=== PATIENT | male | born 1995 | race Caucasian/White ===

== ENCOUNTER 2019-09-26 11:31 | Emergency (ER) | payer OTHER, SELFPAY ==
--- NOTE | ~2019-09-26 | XR_ITS ---
EXAMINATION: XR abdomen/kub 1V EXAM DATE: 09/26/2019 12:20 INDICATION: Right flank pain. TECHNIQUE: Frontal projection(s) of the abdomen for interpretation. There is no prior study for leia javed. FINDINGS: There is expected amount of colonic stool and gas. No small bowel dilation, nonobstructiv e bowel gas pattern. There are no suspicious calcifications identified. There is no organomegaly suspected. Mild lumbar levocurvature. IMPRESSION: Unremarkable abdomen x-ray exam. Reviewed, dictated and finalized at location A. RVISOR MOLD SHOP
[2019-09-26 11:38] VITALS: BP 132/76; PULSE 79; RESP 16; TEMP 36.5; O2SAT 99
--- NOTE | 2019-09-26 11:53 | ED.MALEGU ---
HPI - Male Genitourinary General Chief complaint: Urogenital-Male Stated complaint: FLANK PAIN Time Seen by Provider: 09/26/19 12:00 Source: patient and RN notes reviewed Mode of arrival: ambulatory Limitations: no limitations History of Present Illness HPI Narrative: 23 old male presents with concern for right flank pain since yesterday, worsening at 2 AM waking him up from sleep. Reports he had 1 episode of vomiting last night. Reports history of low back pain related to poor arches in his feet. Reports his current pain is exacerbated when bending, twisting. Reports he is able to find brief positions of comfort when he stretches. Reports typically his back pain will be relieved with ibuprofen and heating pad. Reports those interventions did not work for this back pain. Reports history of abdominal issues, was hospitalized for intussusception and cyclical vomiting in the past. Reports his last bowel movement was 2 days ago, which is typical for him. Denies dysuria, hematuria, frequency, urgency. Denies fever, general malaise. Denies abnormal penile discharge. Denies injury MD Complaint: other (Flank pain) Related Data Allergies Allergy/AdvReac Type Severity Reaction Status Date / Time amoxicillin Allergy Unknown Verified 05/02/11 17:16 Penicillins Allergy Unknown Verified 08/19/11 07:46 Review of Systems Review of Systems: Narrative: CONSTITUTIONAL: Denies malaise, chills, sweats, or fever. CARDIOVASCULAR: Denies chest pain, palpitations, or edema. RESPIRATORY: Denies cough or dyspnea. GASTROINTESTINAL: Denies abdominal pain, nausea, vomiting, diarrhea, bloody, or mucous stools. GENITOURINARY: Denies dysuria frequency, urgency, abnormal penile discharge, or hematuria. Reports right flank pain SKIN: Denies bruising MUSCULOSKELETAL: Reports right back/flank pain. Denies joint pain, or myalgia. NEUROLOGIC: Denies numbness, weakness, or headache. All systems reviewed & are unremarkable except as noted in HPI and below [facility] Family History Family History (Updated 05/02/11 @ 17:17 by DOCTOR UNKNOWN) Other Diabetes mellitus Family history of allergic disorder Family history of cardiovascular disease Family history of osteoarthritis Family history of seizure disorder Social History Social History Smoking status: Never smoker Alcohol intake: current Substance use type: marijuana Comments At time of signature, agree with nursing past medical, surgical, social and family history. There is no relevant family history pertinent to the presenting complaint Exam Narrative: Exam Narrative: GENERAL: Well-appearing, well-nourished, and in no acute distress. HEAD: Normocephalic, atraumatic. EYES: PERRLA, conjunctivae clear. ENT: Mucous membranes moist. NECK: Supple. No lymphadenopathy CHEST: Speaks in full sentences. No respiratory distress. HEART: Regular rate and rhythm. ABDOMEN: Soft, flat, nondistended. No guarding, rebound tenderness, or rigid. No pulsatilla masses. Bowel sounds present in all four quadrants. No organomegaly. Negative Rae?s sign. No periumbilical tenderness. No Supra public tenderness or distension. Good femoral pulses bilaterally. No hernia noted. No scars or surface trauma. No CVA tenderness MUSCULOSKELETAL: Normal range of motion and strength in all extremities; 5/5 strength with hip flexion and extension, dorsiflexion and extension, knee flexion and extension, plantar flexion and extension. Normal sensation in dermatomal distributions with sensitivity to light touch and pain. No midline back tenderness to palpation. No paraspinal tenderness. Transfers from lying to sitting to standing. SKIN: Warm, dry, no rash. No ecchymosis, erythema, open wounds to back. NEURO: Alert and oriented x3. PSYCH: Normal mood and affect Course Course Emergency Course: Discussed with patient limited diagnostic capability at [facility], and that KUB cannot rule out nephrolithiasis. Discussed transfe
== END 2019-09-26 12:41 | disposition home or self-care (01) ==
PROVIDERS: Emergency Provider Nurse Practitioner; PCP Family Medicine
DX: M54.5 Low back pain (principal)
CPT/HCPCS: 74018; 81003; 99213; G0463

== ENCOUNTER 2019-12-10 13:26 | Emergency (ER) | payer OTHER, SELFPAY ==
--- NOTE | ~2019-12-10 | CT_ITS ---
EXAMINATION: CT abdomen pelvis wo con DATE: 12/10/2019 13:57 INDICATION: Right flank pain TECHNIQUE: Computed tomography (CT) of the abdomen and pelvis was performed without intravenous contr ast. Automated exposure control and iterative reconstruction technique were employed. The dose-length product was 199.29 mGy-cm. COMPARISON: 11/27/2018 FINDINGS: Lung bases are clear. Heart size is normal. No pericardial or pleural effusion. Liver, gallbladder, s pleen, pancreas, bilateral adrenal glands and left kidney are normal. Interval increase in now modera te to severe right hydronephrosis with transition point at the ureteropelvic junction. No evident uro lithiasis. High attenuation appendicolith within the otherwise normal-appearing appendix with no eugenio appendiceal inflammatory stranding to suggest acute appendicitis. No abnormal bowel wall thickening o r obstruction. Decompressed bladder is unremarkable. No free intraperitoneal gas or fluid. No patholo gically enlarged abdominal or pelvic lymphadenopathy. Bones are unremarkable. IMPRESSION: 1. Chronic right UPJ obstruction but with significant interval progression of now moderate to severe right hydronephrosis. 2. Appendicoliths but without findings to specifically suggest acute appendicitis. Reviewed, dictated and finalized at location A. IMPRESSION: 1. Chronic right UPJ obstruction but with significant interval progression of n ow moderate to severe right hydronephrosis. 2. Appendicoliths but without findings to specifically suggest acute appendicit is.
[2019-12-10 13:29] VITALS: BP 139/88; PULSE 89; RESP 18; TEMP 36.2; O2SAT 99
[2019-12-10 14:00] LABS: Basophils Percent Auto 0.4 % (0.2-1.2); Hematocrit 40.5 % (42.0-52.0); Hemoglobin 14.2 g/dL (14.0-18.0); Immature Granulocyte Absolute 0.02 K/mm3 (0.00-0.031); Immature Granulocyte Percent A 0.2 % (0-0.5); Lymphocytes Absolute Auto 1.51 K/mm3 (0.9-3.2); Mean Corpuscular HGB Conc 35.1 g/dl (32-36); Mean Corpuscular Hemoglobin 29.8 pg (26-34); Mean Corpuscular Volume 85.1 fl (80-100); Monocytes Absolute Auto 0.5 K/mm3 (0.1-0.6); Neutrophils Absolute Auto 6.3 K/mm3 (1.3-6.7); Neutrophils Percent Auto 75.4 % (45.5-73.1); Platelet Count Result 266 k/mm3 (150-375); Red Blood Count 4.76 M/mm3 (4.6-6.20); Red Cell Distribution Width 11.5 % (11.5-14.5); White Blood Count 8.4 K/mm3 (4.5-10.0)
[2019-12-10] MEDS: PROMETHAZINE HCL 25 MG/ML AMPUL 12.5 MG IV PUSH (14:01)
[2019-12-10] MEDS: SODIUM CHLORIDE 0.9% IV 1,000 ML 999 ML IV CONT (14:02)
[2019-12-10 14:03] LABS: Add Urine Microscopic? YES; Appearance Urine Clear (Clear); Bilirubin Urine Negative (Negative); Blood Urine Negative (Negative); Color Urine Yellow (Yellow); Glucose Urine UA Negative (Negative); Ketones Urine 2+ mg/dL (Negative); Leukocyte Esterase Ur Negative LEU/UL (Negative); Mucus Urine Rare /lpf; Nitrate Urine Negative (Negative); Protein Urine Negative (Negative); RBC Urine 0-2 /hpf (0-2); Urobilinogen Urine Negative mg/dL (<2.0); WBC Urine 0-3 /hpf
[2019-12-10 14:12] LABS: Blood Urea Nitrogen 14 mg/dL (9-20); Calcium 9.3 mg/dL (8.4-10.2); Carbon Dioxide 23 mmol/L (22-30); Chloride 104 mmol/L (98-107); Estimated CRCL calculation 77 ml/min; Estimated Glomerular Filt Rate > 60; Glucose 83 mg/dL (75-110); Potassium 3.9 mmol/L (3.4-5.0); Sodium 137 mmol/L (137-145)
--- NOTE | 2019-12-10 14:55 | ED.GENADULT ---
HPI - General Adult General Chief complaint: Back Pain/Injury Stated complaint: Flank pain Time Seen by Provider: 12/10/19 13:28 History of Present Illness HPI narrative: Patient is a 24-year-old male who presents ER with intermittent right flank pain. Ongoing for the last month. Worsening over the last week. Took 2 [place] tablets last 24 hours that did not alleviate his discomfort so he came to the hospital. Patient also reports he is now having frequent nausea and vomiting that occur with the pain in his back. Right side and radiates around into the abdomen. No urinary frequency or urgency or hematuria. No history of kidney stones. Related Data Allergies Allergy/AdvReac Type Severity Reaction Status Date / Time amoxicillin Allergy Unknown Rash Verified 12/10/19 13:39 Penicillins Allergy Unknown Rash Verified 12/10/19 13:39 Review of Systems Review of Systems: All systems reviewed & are unremarkable except as noted in HPI and below Constitutional: Constitutional: Denies chills, Denies fever(s) and Denies weakness Gastrointestinal: Gastrointestinal: Reports abdominal pain, Reports nausea and Reports vomiting Musculoskeletal: Musculoskeletal: Reports back pain and Denies muscle cramps Neurologic: Denies focal weakness and Denies numbness PMFSH Past Medical History Medical History (Updated 12/10/19 @ 15:39 by Bk Aguayo MD) Nephritis Surgical History Surgical History (Updated 12/10/19 @ 14:56 by Bk Aguayo MD) No pertinent past surgical history Family History Family History (Updated 05/02/11 @ 17:17 by DOCTOR UNKNOWN) Other Diabetes mellitus Family history of allergic disorder Family history of cardiovascular disease Family history of osteoarthritis Family history of seizure disorder Social History Social History Smoking status: Never smoker Alcohol intake: current Substance use type: marijuana Gender identity (if verbalized by the patient): Male Exam Narrative: Exam Narrative: GENERAL: Well-appearing, well-nourished, and in no acute distress. HEAD: Normocephalic, atraumatic. ENT: Mucous membranes moist. CHEST: Clear to auscultation. No respiratory distress. HEART: Regular rate and rhythm. Normal peripheral pulses. ABDOMEN: Soft, nontender, nondistended, mild right CVA tenderness. EXTREMITIES: Normal range of motion. No edema. SKIN: Warm, dry, no rash. NEURO: Alert and oriented x3. PSYCH: Normal mood and affect. Course Course Emergency Course: Discussed case with Dr. Zaragoza. He will contact the patient and arrange an outpatient follow-up with a specialist to can fix this issue. Recommends patient drink fluids and small quantities because if he has a large bolus of fluid intake it will cause pain and spasm. No acute intervention needed at this time. Patient verbalized understanding of treatment plan. We will give a small dose of Toradol here by recommendation of urology and discharged with [place]. Vital Signs Vital signs: Vital Signs Temperature 97.1 F L 12/10/19 13:29 Pulse Rate 89 12/10/19 13:29 Respiratory Rate 18 12/10/19 13:29 Blood Pressure 139/88 12/10/19 13:29 Pulse Oximetry 99 12/10/19 13:29 Temperature 97.1 F L 12/10/19 13:29 Pulse Rate 89 12/10/19 13:29 Respiratory Rate 18 12/10/19 13:29 Blood Pressure 139/88 12/10/19 13:29 Pulse Oximetry 99 12/10/19 13:29 Medical Decision Making Vital Signs Vital Signs: Vital Signs Temperature 97.1 F L 12/10/19 13:29 Pulse Rate 89 12/10/19 13:29 Respiratory Rate 18 12/10/19 13:29 Blood Pressure 139/88 12/10/19 13:29 Pulse Oximetry 99 12/10/19 13:29 Temperature 97.1 F L 12/10/19 13:29 Pulse Rate 89 12/10/19 13:29 Respiratory Rate 18 12/10/19 13:29 Blood Pressure 139/88 12/10/19 13:29 Pulse Oximetry 99 12/10/19 13:29 Lab Data Result diagrams: 12/10/19 13:53 12/10/19 13:53 Labs: Lab Results
[2019-12-10] MEDS: KETOROLAC 15 MG/ML VIAL (*BKC) IV PUSH (16:12)
[2019-12-10 16:14] VITALS: BP 124/90; PULSE 85; RESP 18; O2SAT 100
== END 2019-12-10 16:16 | disposition home or self-care (01) ==
PROVIDERS: Emergency Provider Emergency Medicine; PCP Family Medicine
DX: Q62.11 Congenital occlusion of ureteropelvic junction (principal); R10.9 Unspecified abdominal pain; G89.29 Other chronic pain; K38.1 Appendicular concretions
CPT/HCPCS: 36415; 74176; 80048; 81001; 85025; 96361; 96374; 96375; 99284; J1885; J2550; J7030

== ENCOUNTER 2019-12-25 14:18 | Observation (INO) | payer OTHER, SELFPAY ==
--- NOTE | ~2019-12-25 | CT_ITS ---
EXAMINATION: CT guided nephrostomy tube ch DATE: 12/26/2019 17:02 INDICATION: Right ureteropelvic junction obstruction. TECHNIQUE: The procedure including the risks and benefits was discussed with the patient. Risks discu ssed included bleeding and infection. The patient understood the risks and benefits and agreed to pro ceed. The patient was confirmed to be receiving appropriate antibiotic coverage. The skin overlying the kidney was prepped and draped in usual sterile fashion. Anesthetic was administered with 1% lido olivia subcutaneously. Patient also was given 75 mcg fentanyl for general analgesia. An 18 gauge troc miguelangel needle was inserted into a lower pole calyx of the kidney under CT guidance. Utilizing Seldinger technique the needle was exchanged and the tract serially dilated to 9 Omani dilators and then for a n 8.5 Omani pigtail catheter under CT guidance. The pigtail loop was formed and appropriate position confirmed by CT. The catheter was stitched to the skin. A dressing was applied. 10 mL of reddish uri ne was aspirated and sent to the lab for Gram stain and cultures. The dose-length product was 407.61 mGy-cm. There were no immediate complications. FINDINGS: CT images demonstrate the nephrostomy tube in the renal pelvis. IMPRESSION: 1. Successful CT-guided right nephrostomy tube placement]. Reviewed, dictated and finalized at location A.
[2019-12-25 14:22] VITALS: BP 137/79; PULSE 79; RESP 16; TEMP 36.4; O2SAT 100
[2019-12-25] MEDS: SODIUM CHLORIDE 0.9% IV 1,000 ML 999 ML IV CONT (14:59)
--- NOTE | 2019-12-25 14:59 | ED.BACK ---
HPI - Back Pain/Injury General Chief Complaint: Back Pain/Injury <SATINDER Morales Last Filed: 12/25/19 16:27> Stated Complaint: back pain <SATINDER Morales Last Filed: 12/25/19 16:27> Time Seen by Provider: 12/25/19 14:31 <SATINDER Morales Last Filed: 12/25/19 16:27> Source: patient <SATINDER Morales Last Filed: 12/25/19 16:27> Mode of arrival: ambulatory <SATINDER Moarles Last Filed: 12/25/19 16:27> Limitations: no limitations <SATINDER Morales Last Filed: 12/25/19 16:27> History of Present Illness HPI Narrative: Patient is a 24-year-old male who presents to emergency department for evaluation of continued low back pain that was worse today was recently found to have a ureteral stricture and is scheduled for surgery next week followed by urology and low back. Patient has been taking Zofran and oral narcotics for pain management noting that today the pain increased and he had associated vomiting. Patient on arrival is in the room in no distress. Pain is a constant aching pain worse with activity movement <SATINDER Morales Last Filed: 12/25/19 16:27> Related Data Allergies/Adverse Reactions: Allergies Allergy/AdvReac Type Severity Reaction Status Date / Time amoxicillin Allergy Unknown Rash Verified 12/25/19 14:29 Penicillins Allergy Unknown Rash Verified 12/25/19 14:29 <Andrea Perry PA-C - Last Filed: 12/25/19 16:27> Review of Systems Review of Systems: All systems reviewed & are unremarkable except as noted in HPI and below <SATINDER Morales Last Filed: 12/25/19 16:27> [facility] Past Medical History Medical History: Medical History Nephritis <SATINDER Morales Last Filed: 12/25/19 16:27> Surgical History Surgical History: Surgical History No pertinent past surgical history <SATINDER Morales Last Filed: 12/25/19 16:27> Family History Family History: Family History Other Diabetes mellitus Family history of allergic disorder Family history of cardiovascular disease Family history of osteoarthritis Family history of seizure disorder <Andrea Perry PA-C - Last Filed: 12/25/19 16:27> Social History Social History: Social History Smoking status: Never smoker Alcohol intake: current Substance use type: marijuana Gender identity (if verbalized by the patient): Male <SATINDER Morales Last Filed: 12/25/19 16:27> Course MANAGING EDITOR/PA Physician Supervision Patient presented to the emergency department for recurrent flank pain in the setting of known ureteral stricture. Patient without acute kidney injury or UTI. Spoke with patient's urologist, coordinated care at this facility, patient will be admitted for nephrostomy tube. Patient was given IV fluids, antiemetic and pain medication while in the ER. For this patient encounter, I reviewed the MANAGING EDITOR or PA documentation, treatment plan, and medical decision making; and I had [id number] time with this patient. <Era Richardson MD - Last Filed: 12/25/19 18:13> Consultations Consultation #1: Discussed case with Dr. Zuleyma Cruz twice who would like the patient admitted and will send down the nurse practitioner to evaluate the patient in the emergency department <Andrea Perry PA-C - Last Filed: 12/25/19 16:27> Date: 12/25/19 <SATINDER Morales Last Filed: 12/25/19 16:27> Time: 16:16 <SATINDER Morales Last Filed: 12/25/19 16:27> Vital Signs Vital signs: Vital Signs Temperature 36.4 C 12/25/19 14:22 Pulse Rate 79 12/25/19 14:22 Respiratory Rate 16 12/25/19 14:22 Blood Pressure 137/79 12/25/19 14:22 Pulse Oximet
[2019-12-25] MEDS: FAMOTIDINE 20 MG/2 ML VIAL IV PUSH ×2 (15:00→21:12)
[2019-12-25] MEDS: ONDANSETRON INJ 4 MG/2 ML VIAL IV PUSH (15:00)
[2019-12-25 15:14] LABS: Basophils Percent Auto 0.3 % (0.2-1.2); Eosinophils Percent Auto 0.3 % (0-4.4); Hemoglobin 14.5 g/dL (14.0-18.0); Immature Granulocyte Absolute 0.03 K/mm3 (0.00-0.031); Immature Granulocyte Percent A 0.3 % (0-0.5); Lymphocytes Absolute Auto 1.25 K/mm3 (0.9-3.2); Lymphocytes Percent Auto 12.5 % (18.3-44.2); Mean Corpuscular HGB Conc 35.4 g/dl (32-36); Mean Corpuscular Hemoglobin 30.5 pg (26-34); Mean Corpuscular Volume 86.3 fl (80-100); Mean Platelet Volume 10.1 fl (7.4-10.4); Monocytes Absolute Auto 0.7 K/mm3 (0.1-0.6); Monocytes Percent Auto 6.8 % (2.6-8.5); Neutrophils Percent Auto 79.8 % (45.5-73.1); Platelet Count Result 259 k/mm3 (150-375); Red Blood Count 4.75 M/mm3 (4.6-6.20); Red Cell Distribution Width 11.7 % (11.5-14.5)
[2019-12-25 15:16] LABS: Add Urine Microscopic? NO; Appearance Urine Clear (Clear); Bilirubin Urine Negative (Negative); Blood Urine Negative (Negative); Color Urine Straw (Yellow); Glucose Urine UA Negative (Negative); Ketones Urine Negative (Negative); Leukocyte Esterase Ur Negative LEU/UL (Negative); Nitrate Urine Negative (Negative); Protein Urine Negative (Negative); Specific Grav Ur 1.014 (1.001-1.035); Urobilinogen Urine Negative mg/dL (<2.0)
[2019-12-25 15:26] LABS: Alanine Aminotransferase 11 U/L (4-50); Albumin Level 4.7 g/dL (3.5-5.1); Alkaline Phosphatase 57 U/L (38-126); Aspartate Amino Transferase 19 U/L (17-59); Bilirubin,Total 0.8 mg/dL (0.2-1.3); Blood Urea Nitrogen 15 mg/dL (9-20); Calcium 9.6 mg/dL (8.4-10.2); Carbon Dioxide 25 mmol/L (22-30); Chloride 104 mmol/L (98-107); Estimated CRCL calculation 93 ml/min; Estimated Glomerular Filt Rate > 60; Glucose 86 mg/dL (75-110); Lipase 34 U/L (23-300); Sodium 137 mmol/L (137-145)
[2019-12-25] MEDS: KETOROLAC 30 MG/ML VIAL (*BKC) IV PUSH (15:45)
--- NOTE | 2019-12-25 15:45 | PC.NURSE ---
Pt c/o worsening pain to right flank, states that last time he was here he was told that maybe it was from the bolus of fluids. Pain med given IVP.
--- NOTE | 2019-12-25 16:20 | PC.NURSE ---
DRAPERY AND UPHOLSTERY ESTIMATOR from urology here to speak with patient. Planning to admit and NPO after midnight for possible neprostomy tube placement.
[2019-12-25] MEDS: MORPHINE SULFATE 4 MG/ML INJ IV PUSH ×2 (16:21→21:13)
[2019-12-25 16:23] VITALS: BP 108/86; PULSE 70; RESP 18; O2SAT 99
--- NOTE | 2019-12-25 16:31 | WPDURCON ---
Assessment and Plan Assessment and plan (1) Ureteropelvic junction (UPJ) obstruction, right: Code(s): N13.5 - Crossing vessel and stricture of ureter without hydronephrosis Status: Acute Assessment and Plan: Admit to medicine for pain control. Will do US guided nephrostomy tube placement tomorrow in interventional radiology. NPO after midnight. Urology Consult Note HPI Date Seen: 12/25/19 Primary Care Provider: Seferino Nguyen MD Consult Narrative Narrative: Faustino Frank is a 24 year old male who presents to the ER today with worsening right flank pain, nausea and vomiting. He has a known right UPJ obstruction seen on CT scan from 12/10/2019, which also shows severe right hydronephrosis. He is in pain consistently which is not controlled with Torodol and was just given Morphine. WBC is 7.0, creatinine is 1.10 and UA is negative. Patient denies fever, hematuria, dysuria or abdominal pain. Review of Systems Cardiovascular: Cardiovascular: Reports no additional cardiovascular complaints Respiratory: Respiratory: Reports no additional respiratory complaints Gastrointestinal: Gastrointestinal: Denies abdominal pain, Reports nausea and Reports vomiting Genitourinary: Genitourinary: Denies hematuria, Reports flank pain and Denies urinary frequency PMFSH Past Medical History Medical History Nephritis Surgical History Surgical History No pertinent past surgical history Family History Family History Other Diabetes mellitus Family history of allergic disorder Family history of cardiovascular disease Family history of osteoarthritis Family history of seizure disorder Social History Social History Smoking status: Never smoker Alcohol intake: current Substance use type: marijuana Gender identity (if verbalized by the patient): Male Meds Home Medications and Allergies Home Medications Medication Instructions Recorded Confirmed Type hydrocodone-acetaminophen 1 tablet PO Q6H PRN #20 tablet 12/10/19 Rx ondansetron 4 mg PO Q6H PRN #10 tablet 12/10/19 Rx Allergies Allergy/AdvReac Type Severity Reaction Status Date / Time amoxicillin Allergy Unknown Rash Verified 12/25/19 14:29 Penicillins Allergy Unknown Rash Verified 12/25/19 14:29 Vital Signs Vital Signs - 24 hr 12/25/19 14:22 12/25/19 16:23 Temperature 97.6 F Pulse Rate 79 70 Respiratory Rate 16 18 Blood Pressure 137/79 108/86 Pulse Oximetry 100 99 Exam Resp: Effort & Inspection: normal respiratory effort Cardio: Rate: regular rate GI: GI Palp: No abdominal tenderness : General: Yes CVA tenderness on the right Results Labs CBC & Chem 7: 12/25/19 15:07 12/25/19 15:07 Labs: Short CBC 12/25/19 Range/Units 15:07 WBC 10.0 (4.5-10.0) K/mm3 Hgb 14.5 (14.0-18.0) g/dL Hct 41.0 L (42.0-52.0) % Plt Count 259 (150-375) k/mm3 BMP 12/25/19 15:07 Sodium 137 Potassium 4.0 Chloride 104 Carbon Dioxide 25 BUN 15 Creatinine 1.10 Glucose 86 Calcium 9.6 Liver Function 12/25/19 Range/Units 15:07 Total Bilirubin 0.8 (0.2-1.3) mg/dL AST 19 (17-59) U/L ALT 11 (4-50) U/L Alkaline Phosphatase 57 (38-126) U/L Albumin 4.7 (3.5-5.1) g/dL Urine 12/25/19 Range/Units 15:07 Urine Color Straw (Yellow) Urine Appearance Clear (Clear) Urine pH 7.0 (5.0-9.0) Ur Specific [place] 1.014 (1.001-1.035) Urine Protein Negative (Negative) mg/dL Urine Glucose (UA) Negative (Negative) mg/dL
[2019-12-25 16:44] LABS: Prothrombin Time 13.3 Seconds (11.1-14.7)
[2019-12-25 16:45] LABS: Partial Thromboplastin Time 28.7 SECONDS (22.3-36.8)
[2019-12-25 17:41] VITALS: BP 115/67; PULSE 72; RESP 14; O2SAT 99
--- NOTE | 2019-12-25 18:07 | PC.NURSE ---
Attempt to call report. ISAMAR Emanuel to return call.
[2019-12-25 18:38] VITALS: BMI 22.5
--- NOTE | 2019-12-25 18:56 | ADMGEN ---
This patient, Faustino Frank, was admitted to Medical Room 348-. Patient/family oriented to hospital policies and general routines including ID bracelet, bed and alarms, visiting hours, pain management, procedures, bathroom and other care routines, personal items, smoking policy, room service/diet, and visiting hours. Valuables list has been completed. Information on how to activate the Rapid Response Team has been discussed. Patient/Family are encouraged to report perceived risks to care and to ask questions if they do not understand what they are told or what they should do.
[2019-12-25 20:22] VITALS: BP 131/74; PULSE 64; RESP 16; TEMP 36.2; O2SAT 98
[2019-12-25 21:37] VITALS: PULSE 64; RESP 16; O2SAT 98
[2019-12-26] VITALS (21 sets, daily range): BP systolic 102–146; BP diastolic 61–89; PULSE 58–88; RESP 14–18; O2SAT 98–100
[2019-12-26 06:14] LABS: Basophils Percent Auto 0.4 % (0.2-1.2); Eosinophils Absolute Auto 0.1 K/mm3 (0-0.3); Eosinophils Percent Auto 0.8 % (0-4.4); Hematocrit 40.8 % (42.0-52.0); Hemoglobin 13.9 g/dL (14.0-18.0); Immature Granulocyte Absolute 0.03 K/mm3 (0.00-0.031); Immature Granulocyte Percent A 0.4 % (0-0.5); Lymphocytes Absolute Auto 2.84 K/mm3 (0.9-3.2); Lymphocytes Percent Auto 33.2 % (18.3-44.2); Mean Corpuscular HGB Conc 34.1 g/dl (32-36); Mean Corpuscular Hemoglobin 29.9 pg (26-34); Mean Corpuscular Volume 87.7 fl (80-100); Mean Platelet Volume 10.4 fl (7.4-10.4); Monocytes Absolute Auto 0.7 K/mm3 (0.1-0.6); Monocytes Percent Auto 8.2 % (2.6-8.5); Neutrophils Absolute Auto 4.9 K/mm3 (1.3-6.7); Platelet Count Result 270 k/mm3 (150-375); Red Blood Count 4.65 M/mm3 (4.6-6.20); Red Cell Distribution Width 11.7 % (11.5-14.5); White Blood Count 8.6 K/mm3 (4.5-10.0)
[2019-12-26 06:38] LABS: Blood Urea Nitrogen 15 mg/dL (9-20); Calcium 9.4 mg/dL (8.4-10.2); Carbon Dioxide 28 mmol/L (22-30); Chloride 105 mmol/L (98-107); Estimated CRCL calculation 85 ml/min; Estimated Glomerular Filt Rate > 60; Glucose 70 mg/dL (75-110); Potassium 4.3 mmol/L (3.4-5.0); Sodium 140 mmol/L (137-145)
[2019-12-26] MEDS: FAMOTIDINE 20 MG/2 ML VIAL IV PUSH (08:56)
--- NOTE | 2019-12-26 13:47 | WPDUROPN2 ---
Progress Note: A&P Assessment and Plan (1) Ureteropelvic junction (UPJ) obstruction, right: Code(s): N13.5 - Crossing vessel and stricture of ureter without hydronephrosis Status: Acute Assessment and Plan: Patient will have right nephrostomy tube placed today at 1400, then ok to discharge home. He will follow up with Dr. Mathew for a telehealth appointment tomorrow at 3pm to discuss upcoming procedure next Tuesday that was previously scheduled as an outpatient. No further evaluation necessary at this time. Subjective Subjective Date/Time Seen: 12/26/19 13:47 Patient's pain has decreased greatly. He is scheduled for nephrostomy tube placement at 1400 today. Review of Systems Cardiovascular: Cardiovascular: Reports no additional cardiovascular complaints Respiratory: Respiratory: Reports no additional respiratory complaints Gastrointestinal: Gastrointestinal: Denies abdominal pain, Denies nausea and Denies vomiting Genitourinary: Genitourinary: Denies hematuria and Denies flank pain Exam Resp: Effort & Inspection: normal respiratory effort Cardio: Rate: regular rate GI: GI Palp: No abdominal tenderness Objective Data Vital Signs Vital Signs: Vital Signs - 24 hr 12/25/19 14:22 12/25/19 16:23 12/25/19 17:41 Temperature 97.6 F Pulse Rate 79 70 72 Respiratory Rate 16 18 14 Blood Pressure 137/79 108/86 115/67 Pulse Oximetry 100 99 99 12/25/19 20:22 12/25/19 21:37 12/26/19 05:17 Temperature 97.2 F L Pulse Rate 64 64 58 L Respiratory Rate 16 16 14 Blood Pressure 131/74 114/73 Pulse Oximetry 98 98 100 12/26/19 08:00 Temperature Pulse Rate Respiratory Rate Blood Pressure Pulse Oximetry 100 Intake/Output Intake/Output: Intake & Output 12/23/19 12/24/19 12/25/19 12/26/19 23:59 23:59 23:59 23:59 Intake Total 1000 0 Output Total 350 Balance 1000 -350 Meds/Results Medications: Active Medications Generic Name Dose Route Start Last Admin Trade Name Freq PRN Reason Stop Dose Admin Famotidine 20 mg 12/25/19 21:00 12/26/19 08:56 Pepcid Iv IV PUSH 20 mg Q12HR MARJAN Administration Acetaminophen 1,000 mg in 100 mls @ 400 mls/hr 12/25/19 16:27 Ofirmev 1,000 Mg Ivpb IVPB 12/26/19 16:28 Q6H PRN Mild Pain (1-3) or Fever Lactated Ringer's 1,000 mls @ 75 mls/hr 12/25/19 16:30 12/26/19 07:24 Lr - Lactated Ringers Iv IV CONT Not Given .[id number] MARJAN Morphine Sulfate 4 mg 12/25/19 16:27 12/25/19 21:13 Morphine Sulfate Inj IV PUSH 4 mg Q2H PRN Administration Pain Rated 7-10 Ondansetron HCl 4 mg 12/25/19 16:27 Zofran Inj IV PUSH Q4H PRN Nausea Labs Labs: Laboratory Results - last 24 hr 12/25/19 12/25/19 12/25/19 15:06 15:07 15:07 WBC 10.0 RBC 4.75 Hgb 14.5 Hct 41.0 L MCV 86.3 MCH 30.5 MCHC 35.4 RDW 11.7 Plt Count 259 MPV 10.1 Immature Gran % (Auto) 0.3 Neut % (Auto) 79.8 H Lymph % (Auto) 12.5 L Slope % (Auto) 6.8 Eos % (Auto) 0.3 Baso % (Auto) 0.3 Lymph # (Auto) 1.25 Slope # (Auto) 0.7 H Eos # (Auto) 0.0 Baso # (Auto) 0.0 Abs Immat Gran (auto) 0.03 Absolute Neuts (auto) 8.0 H Absolute Nucleated RBC 0.0 Nucleated RBC % 0.0 PT 13.3 INR 1.0 APTT 28.7 Sodium 137 Potassium 4.0 Chloride 104 Carbon Dioxide 25 BUN 15 Creatinine 1.10 Estim Creat Clear Calc 93 Estimated GFR > 60 Glucose 86 Calcium 9.6 Total Bilirubin 0.8 AST 19 ALT 11 Alkaline Phosphatase 57 Total Protein 7.0 Albumin 4.7 Lipase 34 Urine Color Urine Appearance Urine pH Ur Specific [place] Urine Protein Urine Glucose (UA) Urine Ketones Ur Blood (Man) Urine Nitrate Urine Bilirubin Urine Urobilinogen Leukocyte Esterase Rfl 12/25/19 12/26/19 12/26/19 15:07 05:05 05:05 WBC 8.6 RBC 4.65 Hgb 13.9 L Hct 40.8 L MCV
--- NOTE | 2019-12-26 14:07 | SUR.OPER ---
PT. VILMA JESSICA ARRIVED TO CT VIA BED FOR CT GUIDED NEPHROSTOMY TUBE PLACEMENT BY DR. BARCLAY. PLACED ON CT TABLE. DENIES PAIN AT THIS TIME. AWAIT DR. BARCLAY.
[2019-12-26] MEDS: SODIUM CHLORIDE 0.9% IV 500 ML 30 ML (14:24)
--- NOTE | 2019-12-26 14:24 | SUR.OPER ---
DR. BARCLAY ARRIVES TO CT, DISCUSSING PROCEDURE W/ PT. PT. CALM, COOPERATIVE, A&OX4. AGREEABLE TO PROCEED. VSS. PT. REPOSITIONED SELF W/ ASSIST TO PRONE POSITION ON TABLE.
--- NOTE | 2019-12-26 14:50 | SUR.OPER ---
TIME OUT COMPLETED. SEE MODERATE SEDATION FLOW SHEET FOR MEDICATIONS GIVEN DURING PROCEDURE BY THIS RN. DR. BARCLAY AT SIDE, CLEANSING SKIN AND MARKING SITES W/ CT GUIDANCE.
--- NOTE | 2019-12-26 14:58 | SUR.OPER ---
LIDOCAINE LOCAL ANESTHETIC BEING ADMINISTERED TO R. POSTERIOR FLANK SITE BY DR. BARCLAY.
[2019-12-26] MEDS: CIPROFLOXACIN 400 MG/D5W 200ML 200 ML 200 MG IVPB (15:00)
--- NOTE | 2019-12-26 15:00 | SUR.OPER ---
400MG CIPRO IVPB IN 200ML STARTED VIA PUMP PER DR. BARCLAY'S ORDER.
--- NOTE | 2019-12-26 15:07 | SUR.OPER ---
ADDITIONAL LOCAL INJECTION OF LIDOCAINE GIVEN BY DR. BARCLAY TO R. POSTERIOR FLANK. 2ML THIS TIME. 3ML PREVIOUS TIME AT 1458.
--- NOTE | 2019-12-26 15:15 | SUR.OPER ---
DR. BARCLAY OBTAINING NEEDLE PLACMENT TO FLUID COLLECTION SITE USING CT GUIDANCE. CONTINUEING TO MONITOR PT. HAS ONLY HAD LOCAL ANESTHESIA SO FAR DURING PROCEDURE. TOLERATING WELL. VSS.
--- NOTE | 2019-12-26 15:36 | SUR.OPER ---
PROCEDURE CONTINUES. GRIMACING NOTED. FENTANYL 50MCG GIVEN IVP PER ORDER FOR PAIN/PROMOTE COMFORT. SEE MODERATE SEDATION FLOW SHEET.
--- NOTE | 2019-12-26 15:46 | SUR.OPER ---
ADDITIONAL 2ML LOCAL INJECTION OF LIDOCAINE GIVEN TO R. POSTERIOR FLANK AREA BY DR. BARCLAY TO NUMB AREA.
--- NOTE | 2019-12-26 15:58 | SUR.OPER ---
GRIMACING INTERMITTANTLY, CLENCHING TEETH. FENTANYL 50MCG GIVEN IVP ORDERED FOR PAIN CONTROL. SEE MODERATE SEDATION FLOWSHEET FOR MEDS GIVEN. VSS. REASSURANCE GIVEN. REPORTS RELIEF WHEN FENTANYL GIVEN.
--- NOTE | 2019-12-26 16:05 | SUR.OPER ---
WIRE THREADED THROUGH NEEDLE TO FLUID COLLECTION USING CT GUIDANCE.
--- NOTE | 2019-12-26 16:13 | SUR.OPER ---
DR. BARCLAY DIALATING OVER WIRE FOR INSERTION OF COOK CATHETER TUBE.
--- NOTE | 2019-12-26 16:16 | SUR.OPER ---
FENTANYL 50MCG GIVEN IVP FOR PAIN CONTROL, COMFORT. HAS RECEIVED TOTAL OF 150MCG FENTANYL IV DURING PROCEDURE FOR COMFORT, PAIN CONTROL. WILL CONTINUE TO MONITOR. DR. BARCLAY INSERTING [id number] COOK CATHETER INTO FLUID COLLECTION R. KIDNEY. THIN, WATERY, BLOODY COLORED FLUID RETURNED IN TUBING TO COLLECTION BAG.
--- NOTE | 2019-12-26 16:25 | SUR.OPER ---
COOK DRAINAGE CATHETER SUTURED INTO PLACE. TOLERATED WELL. VSS.
--- NOTE | 2019-12-26 16:30 | SUR.OPER ---
INTACT, DRAINING COOK CATHETER NEPHROSTOMY TUBE SECURE AND DRESSED W/ GUAZE AND TEGADERM DRESSING BY DR. BARCLAY. FLUID SAMPLE COLLECTED BY TO SEND TO LAB.
--- NOTE | 2019-12-26 16:32 | SUR.OPER ---
PROCEDURE COMPLETE AT THIS TIME. RESTING. IV ABX COMPLETED AT 1603. 200ML INFUSED. REPORTS PRESSURE TO R. LOWER POSTERIOR FLANK AT 2/10. DENIES IT PAIN. GOOD SPIRITS. TALKATIVE. VSS. WILL CONTINUE TO MONITOR UNTIL 30 MINUTES POST LAST SEDATIVE RX GIVEN AT 1616.
--- NOTE | 2019-12-26 16:53 | SUR.OPER ---
VSS. FULLY AWAKE AND ALERT. DENIES PAIN OR NAUSEA AT THIS TIME. HAS TRANSFERRED SELF FROM CT TABLE TO BED FOR TRANSPORT BACK TO [facility] MEDICAL ROOM 348.1. GUAZE AND TEGADERM DRESSING TO R. LOWER POSTERIOR FLANK C/D/I. NEPHROSTOMY TUBE INTACT AND DRAINING SMALL AMOUNT OF WATERY BLOOD COLORED FLUID. TOLERATED PROCEDURE WELL. VOICES NO C/O. RETURNED TO ROOM 348.1 VIA BED. REPORT GIVEN TO ISAMAR EMMANUEL.
[2019-12-26] MEDS: MORPHINE SULFATE 4 MG/ML INJ IV PUSH (17:40)
== END 2019-12-26 19:40 | disposition home or self-care (01) ==
LOC: ANHED 16:33 → ANH3MED 17:44
PROVIDERS: Emergency Medicine Emergency Medical Services; Radiology Diagnostic Radiology; Admitting Provider Urology; Emergency Provider Emergency Medicine; PCP Family Medicine; Visit Provider Urology
PROC: (CPT 50389; principal; 2019-12-26 14:00)
DX: N13.1 Hydronephrosis with ureteral stricture, not elsewhere classified (principal); Z79.891 Long term (current) use of opiate analgesic; R10.9 Unspecified abdominal pain
CPT/HCPCS: 36415; 50435; 80048; 80053; 81003; 83690; 85025; 85610; 85730; 87070; 87075; 87205; 96361; 96374; 96375; 96376; 99285; C1729; C1769; G0378; J0744; J1885; J2270; J2405; J3010; J7030; J7040; Q9967

== ENCOUNTER 2020-03-20 08:25 | Outpatient (CLI) | payer OTHER, SELFPAY ==
--- NOTE | ~2020-03-20 | XR_ITS ---
XR abdomen/kub 1V DATE: 03/20/2020 08:55 INDICATION: Ureteral stricture, hydronephrosis TECHNIQUE: Supine AP view COMPARISON: 12/26/2019 CT guided right nephrostomy tube placement FINDINGS: A pigtail nephrostomy catheter overlies the mid to lower right kidney. There is a right int ernal urinary stent, proximal pigtail overlying the right renal pelvis. There is a prominent amount of fecal material within the colon but no evidence of bowel obstruction. No visceromegaly or significant abnormal calcification is evident. 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 IMPRESSION: Right nephrostomy catheter and right internal urinary stent Reviewed, dictated and finalized at [facility]. Reviewed, dictated and finalized at [facility].
== END 2020-03-20 08:26 | disposition home or self-care (01) ==
LOC: ANHIMG 08:31
PROVIDERS: PCP Family Medicine; Visit Provider Urology
DX: N13.1 Hydronephrosis with ureteral stricture, not elsewhere classified (principal)
CPT/HCPCS: 74018

== ENCOUNTER 2023-05-31 16:38 | Emergency (ER) | payer OTHER, SELFPAY ==
[2023-05-31 16:52] VITALS: BP 129/75; PULSE 70; RESP 16; TEMP 37.2; O2SAT 100
--- NOTE | 2023-05-31 17:21 | ED.URI ---
HPI - URI/Sore Throat General Chief Complaint: Upper Respiratory Infection Stated Complaint: Strep symptoms Time Seen by Provider: 05/31/23 17:15 Source: patient Mode of arrival: ambulatory Limitations: no limitations History of Present Illness HPI Narrative: 27 year old male present to [facility] care with complaints of sore throat for the past 5 days with increased symptoms today with some chills and sweats with no known fevers, admits to some body aches, denies any cough or ear pain or any headache pain. Patient reports that he has had strep in past with symptoms similar in past. Patient reports that he did have some diarrhea last night denies any nausea or vomiting. MD elicited complaint: sore throat Pertinent past history: other (past strep throat) Onset (ago): day(s) (5) Consistency: progressively worsening Pain scale (0-10): 3 Able to tolerate fluids by mouth: Yes Exacerbating factors: swallowing Treatments prior to arrival: ibuprofen Related Data Allergies Allergy/AdvReac Type Severity Reaction Status Date / Time amoxicillin Allergy Unknown Rash Verified 05/31/23 17:20 Penicillins Allergy Unknown Rash Verified 05/31/23 17:20 Review of Systems Review of Systems: CONSTITUTIONAL:Reports malaise, positive for chills, sweats, no known fever. EYES: Denies visual changes, redness, or discharge. ENT: Reports rhinorrhea, congestion,no sinus pain,no otalgia and positive for sore throat. CARDIOVASCULAR: Denies chest pain, palpitations, or edema. RESPIRATORY: Reports cough.? Denies dyspnea. GASTROINTESTINAL: Denies abdominal pain, nausea, vomiting, diarrhea SKIN: Denies rash or itching. MUSCULOSKELETAL:reports myalgia. NEUROLOGIC: Denies headache. All systems reviewed & are unremarkable except as noted in HPI and below PMFSH Past Medical History Medical History (Updated 06/01/23 @ 20:33 by Era Raya NP) Anxiety and depression Eczema as child Nephritis Strep throat Ureteropelvic junction (UPJ) obstruction, right Urinary tract infection Surgical History Surgical History (Updated 06/01/23 @ 20:33 by Era Raya NP) H/O nephrostomy History of placement of ear tubes Family History Family History (Updated 12/25/19 @ 18:46 by Jenae Comer RN) Grandparent Diabetes mellitus Hypertension Father Hypertension Mother Migraines Other Family history of allergic disorder Family history of cardiovascular disease Family history of osteoarthritis Family history of seizure disorder Social History Social History Smoking packs per day: 0 Smoking cigarettes per day: 0.0 Smoking status: Never smoker Alcohol intake: never Substance use: current Substance use type: marijuana Last use: Yesterday 12/24/19 Gender identity (if verbalized by the patient): Male Spiritual care concerns: No Comments At time of signature, agree with nursing past medical, surgical, social and family history. There is no relevant family history pertinent to the presenting complaint Exam Narrative: GENERAL: Well-appearing, well-nourished, and in no acute distress. HEAD: Normocephalic EYES: PERRLA, conjunctivae clear ENT: Nares clear, turbinates edematous and erythematous, clear discharge. Mucous membranes moist. TM pearly grant with dull light reflex bilaterally; no tragal tenderness. Oropharynx erythematous without lesions. Tonsils red enlarged and without exudate, no drooling, no hoarseness, no trismus, uvula midline post nasal drainage. NECK: Supple. lymphadenopathy CHEST: Clear to auscultation, breath sounds equal. No wheezing, rhonchi, rales, or stridor. No respiratory distress, speaks in full sentences.no acute cough,SAO2 100% on room air HEART: Regular rate and rhythm. No murmur heard. SKIN: Warm, dry, no rash. NEURO: Alert and oriented x3. PSYCH: Normal mood and affect Course Course Emergency Co
== END 2023-05-31 17:44 | disposition home or self-care (01) ==
PROVIDERS: Emergency Provider Registered Nurse
DX: J03.90 Acute tonsillitis, unspecified (principal)
CPT/HCPCS: 87081; 87880; 99203; G0463